=== PATIENT | male | born 1960 | race African-American/Black ===

== ENCOUNTER → 2019-03-19 | Outpatient (CLI) | payer BC | LOC: ULTRA 01:04 → RAD 01:04 | DX: N62 Hypertrophy of breast (principal); R92.2 Inconclusive mammogram ==

== ENCOUNTER → 2019-04-13 | Outpatient (CLI) | payer OTHER | LOC: CAT 11:34 | DX: Z13.6 Encounter for screening for cardiovascular disorders (principal); I25.10 Atherosclerotic heart disease of native coronary artery without angina pectoris; E78.00 Pure hypercholesterolemia, unspecified ==

== ENCOUNTER → 2019-11-02 | Outpatient (CLI) | payer BC | LOC: CAT 09:00 | DX: R06.09 Other forms of dyspnea (principal); R06.02 Shortness of breath ==

== ENCOUNTER → 2020-05-25 | Outpatient (CLI) | payer BC | LOC: LAB 09:45 | PROVIDERS: ATTEND Family Medicine | DX: Z01.818 Encounter for other preprocedural examination (principal); Z11.59 Encounter for screening for other viral diseases ==

== ENCOUNTER → 2020-06-01 | Outpatient (CLI) | payer BC ==
--- NOTE | 2020-06-14 19:32 | PFR/MVV ---
[facility] [place] [address] PULMONARY FUNCTION MVV/REPORT Name: NOLVIA HERNANDEZ Room #: [facility] Roland.#: [id number] Admission: 06/01/20 Attend Phys: Parrish Phillips MD Discharge: Date of : 60 Report #: [id number] THIS REPORT FOR: //name// >> SPIROMETRY: (BTPS) Height: 72 in cm Weight: 284 lbs kg Exam Date: 06/01/20 PRE-RX POST-RX PRED BEST %PRED BEST %PRED %CHG FVC LITERS . 4.94 . 3.25 . 66 . 3.04 . 61 . -6 FEV1 LITERS . 3.48 . 2.45 . 70 . 2.33 . 67 . -5 FEV1/FVC % . 70 . 75 . 707 . 77 . 709 . 2 JAK48-41% L/Sec . 3.24 . 1.92 . 59 . 2.05 . 63 . 7 PEF L/SEC . 9.13 . 9.02 . 99 . 7.81 . 86 . -13 FEF50/FIF50 UNITLESS . <1.00 . 0.91 . . 1.44 . . 58 MVV L/Min . 147 . 99 . 67 f 1/Min . . 165 . >> LUNG VOLUMES: (BTPS) PRE-RX POST-RX PRED AVG %PRED AVG %PRED %CHG VC Liters . 4.94 . 3.68 . 74 . . . TLC Liters . 7.15 . 4.93 . 69 . . . RV Liters . 2.49 . 1.25 . 50 . . . RV/TLC % . 37 . 25 . 69 . . . FRC PL Liters . 3.29 . 1.74 . 53 . . . FRC N2 Liters . 3.29 . . . . . ERV Liters . 1.67 . 0.49 . 29 . . . IC Liters . 3.34 . 2.97 . 89 . . . >> DIFFUSION: DLCO ml/Min/mmHg . 31.1 . 37. . 119 . . . DL Kaush[place] ml/Min/mmHg . 31.1 . 37.1 . 119 . . . DLCO/VA ml/Min/mmHg . 3.80 . 6.80 . 179 . . . VA Liters . 7.54 . 5.46 . 72 . . . COMMENTS: COMMENTS: >> RESISTANCE: [facility] [address] [place] [address] PULMONARY FUNCTION MVV/REPORT Name: NOLVIA HERNANDEZ Room #: REG [facility]#: [id number] Admission: 06/01/20 Attend Phys: Parrish Phillips MD Discharge: Date of : 60 Report #: [id number] PRE-RX PRED AVG %PRED Raw Total cmH20/L/Sec . . 3.06 . Raw Insp cmH20/L/Sec . . 1.53 . Raw Exp cmH20/L/Sec . . 2.95 . Raw cmH20/L/Sec . 1.40 . 2.20 . 158 Gaw L/Sec/cmH20 . .0789 . 0.454 . 58 sRaw cmH20 Sec . 4.59 . 6.99 . 152 sGaw l/cmH20 Sec . 0.218 . 0.143 . 66 Vtq Liters . . 3.18 . # = OUTSIDE 95% CONFIDENCE INTERVAL CALIBRATION: PRED: 3.00 ACTUAL: EXP 3.01 INSP 3.02 [facility]-OL10-06 [facility]-05 N-1804-4 >> INTERPRETATION/IMPRESSION: CC: Parrish Phillips DATE OF SERVICE: 06/01/2020 PRIMARY CARE PHYSICIAN: Dr. Parrish Phillips. SPIROMETRY: FEV1 is 2.45 liters (70%), FVC is 3.25 liters (66%), FEV1/FVC ratio 75%. There is no significant response to bronchodilator therapy. LUNG VOLUMES: TLC is 4.93 liters (69%). IC to ERV ratio is 2.97 liters to 0.49 liters. Diffusing capacity is 119%. IMPRESSION: Pulmonary function studies are consistent with a moderate restrictive airflow defect. Diffusing capacity is normal. IC to ERV ratio is increased suggestive of a pseudorestriction. Please correlate clinically, possibly secondary to body habitus. There is no significant response to bronchodilator therapy. <ELECTRONICALLY SIGNED> By: Boy Porras MD 06/14/20 1932 Boy Porras MD /nt
== END ==
LOC: PUL 08:02
PROVIDERS: ATTEND Family Medicine
DX: J45.909 Unspecified asthma, uncomplicated (principal)

== ENCOUNTER → 2021-07-11 | Outpatient (CLI) | payer BC | LOC: SJCVCIMAG | PROVIDERS: ATTEND Internal Medicine Cardiovascular Disease | DX: I35.1 Nonrheumatic aortic (valve) insufficiency (principal); I10 Essential (primary) hypertension; E78.5 Hyperlipidemia, unspecified ==